=== PATIENT | male | born 1945 | race Caucasian/White ===

== ENCOUNTER 2019-04-06 13:05 | Emergency (ER) | payer MEDICARE, SELFPAY ==
--- NOTE | ~2019-04-06 | XR_ITS ---
EXAMINATION: XR chest 2V 04/06/2019 13:26 INDICATION: Right posterior chest pain PROCEDURE: 2 view chest COMPARISON: No prior studies for comparison. FINDINGS: The lungs are clear. The cardiomediastinal silhouette is within normal limits. There are no pleural effusions. There is no pneumothorax suspected. IMPRESSION: 1: NO ACUTE CARDIOPULMONARY DISEASE. Reviewed, dictated and finalized at location A. SHIP CLERK
--- NOTE | 2019-04-06 13:12 | ED.GENADULT ---
HPI - General Adult General Chief complaint: Back Pain/Injury Stated complaint: rib pain Time Seen by Provider: 04/06/19 13:12 Source: patient Mode of arrival: ambulatory Limitations: no limitations History of Present Illness HPI narrative: A 73 y/o male, who is a nonsmoker/occasional drinker, presents to with c/o right rib pain below the scapula. Pt states that he slipped on ice 2 days ago and fell onto the running boards of his car. Pt felt fine at first but his pain worsened after he turned in bed last night and felt something. His pain is worse when coughing, no fever Onset (ago): day(s) (2) Location: right (ribs) Exacerbating factors: other (coughing) Related Data Home Medications Medication Instructions Recorded Confirmed cannabidiol 100 mg/mL oral solution 100 mg PO DAILY 01/21/19 04/06/19 omega 0-zaa-otf-fish oil 1,000 mg 1 cap PO DAILY 01/21/19 04/06/19 (120 mg-180 mg) capsule Allergies Allergy/AdvReac Type Severity Reaction Status Date / Time No Known Allergies Allergy Verified 04/06/19 13:06 Review of Systems Review of Systems: Narrative: Pt advised to see PMD in week for possible HTN General/Constitutional: Denies: weight loss,fever Eyes: Denies: Redness,discharge Ears/Nose/Throat: Denies: Epistaxis,ear discharge Respiratory: Denies: Hemoptysis Gastrointestinal: Denies: Vomiting, Bleeding-rectal Skin: Reports: swelling and redness to left thumb and left great toe; Denies: drainage Neurologic: Denies: Focal Weakness,Sz Hematologic: Denies: Petechiae/Purpura Psychiatric: Denies: Suicidal ideation [facility] Past Medical History Medical History (Updated 04/06/19 @ 13:49 by Esteban Peters MD) BPH (benign prostatic hyperplasia) Erectile dysfunction Family History Family History (Updated 08/29/17 @ 13:33 by DOCTOR UNKNOWN) Mother Family history of cardiovascular disease Cerebrovascular accident Other Hypertension Social History Social History Smoking status: Never smoker Alcohol intake: current Comments At time of signature, agree with nursing past medical, surgical, social and family history. There is no relevant family history pertinent to the presenting complaint Exam Narrative: Exam Narrative: General Appearance: Well appearing, No distress EYE: PERRLA, Conjunctiva clear Ears: External ear normal Nose: Normal nose Mouth/Throat: Normal appearing, Normal lips Neck: Supple Respiratory: Airway patent, No respiratory distress, CTA ; tender R chest wall below scapula Cardiovascular: RRR Abdomen: Soft, Non-tender, Musculoskeletal: Full ROM Skin: Warm, Dry Neurological: A&O x3, CN II-X intact Psychiatric: Normal mood, Normal affect Course Vital Signs Vital signs: Vital Signs Temperature 98.3 F 04/06/19 13:17 Pulse Rate 66 04/06/19 13:17 Respiratory Rate 16 04/06/19 13:17 Blood Pressure 139/86 04/06/19 13:17 Pulse Oximetry 100 04/06/19 13:17 Temperature 98.3 F 04/06/19 13:17 Pulse Rate 66 04/06/19 13:17 Respiratory Rate 16 04/06/19 13:17 Blood Pressure 139/86 04/06/19 13:17 Pulse Oximetry 100 04/06/19 13:17 Medical Decision Making Vital Signs Vital Signs: Vital Signs Temperature 98.3 F 04/06/19 13:17 Pulse Rate 66 04/06/19 13:17 Respiratory Rate 16 04/06/19 13:17 Blood Pressure 139/86 04/06/19 13:17 Pulse Oximetry 100 04/06/19 13:17 Temperature 98.3 F 04/06/19 13:17 Pulse Rate 66 04/06/19 13:17 Respiratory Rate 16 04/06/19 13:17 Blood Pressure 139/86 04/06/19 13:17 Pulse Oximetry 100 04/06/19 13:17 Discharge Plan Discharge Clinical Impression: Chest wall pain Patient Disposition: Home, Self-Care Condition: Stable Instructions: Rib Fracture (ED) Prescriptions: New acetaminophen-codeine [Tylenol-Codeine #3] 300-30 mg tablet 1 tablet PO HS PRN (Reason: pain) Qty: 10 RF: 0 tramadol 50 mg tablet 50 mg PO TID PRN ([place]
[2019-04-06 13:17] VITALS: BP 139/86; PULSE 66; RESP 16; TEMP 36.8; O2SAT 100
== END 2019-04-06 13:56 | disposition home or self-care (01) ==
PROVIDERS: Emergency Provider Emergency Medicine; PCP Internal Medicine
DX: R07.89 Other chest pain (principal); N40.0 Benign prostatic hyperplasia without lower urinary tract symptoms
CPT/HCPCS: 71046; 99213; G0463

== ENCOUNTER 2019-11-26 07:58 | Outpatient (CLI) | payer MEDICARE, SELFPAY ==
[2019-11-26 08:44] LABS: Basophils Absolute Auto 0.1 K/mm3 (0.0-0.1); Basophils Percent Auto 1.3 % (0.2-1.2); Eosinophils Absolute Auto 0.1 K/mm3 (0-0.3); Eosinophils Percent Auto 2.2 % (0-4.4); Hematocrit 43.6 % (42.0-52.0); Hemoglobin 14.8 g/dL (14.0-18.0); Immature Granulocyte Absolute 0.01 K/mm3 (0.00-0.031); Immature Granulocyte Percent A 0.2 % (0-0.5); Lymphocytes Absolute Auto 1.24 K/mm3 (0.9-3.2); Mean Corpuscular HGB Conc 33.9 g/dl (32-36); Mean Corpuscular Volume 91.2 fl (80-100); Mean Platelet Volume 10.7 fl (7.4-10.4); Monocytes Absolute Auto 0.5 K/mm3 (0.1-0.6); Monocytes Percent Auto 11.3 % (2.6-8.5); Neutrophils Absolute Auto 2.7 K/mm3 (1.3-6.7); Platelet Count Result 171 k/mm3 (150-375); Red Blood Count 4.78 M/mm3 (4.6-6.20); Red Cell Distribution Width 12.9 % (11.5-14.5); White Blood Count 4.6 K/mm3 (4.5-10.0)
[2019-11-26 08:58] LABS: Alanine Aminotransferase 24 U/L (4-50); Albumin Level 4.1 g/dL (3.5-5.1); Alkaline Phosphatase 40 U/L (38-126); Anion Gap 5 mmol/L (8-16); Aspartate Amino Transferase 35 U/L (17-59); Bilirubin,Total 0.8 mg/dL (0.2-1.3); Blood Urea Nitrogen 13 mg/dL (9-20); Calcium 9.3 mg/dL (8.4-10.2); Carbon Dioxide 32 mmol/L (22-30); Chloride 101 mmol/L (98-107); Cholesterol 205 mg/dL (0-200); Estimated Glomerular Filt Rate > 60; Glucose 103 mg/dL (75-110); HDL Direct 78 mg/dL; Potassium 4.5 mmol/L (3.4-5.0); Sodium 138 mmol/L (137-145); Triglycerides 87 mg/dL (<150)
[2019-11-26 09:10] LABS: LDL Cholesterol Direct 95 mg/dL
[2019-11-26 09:29] LABS: Prostate Specific Antigen 4.7 ng/mL (< OR = 4.0)
== END 2019-11-26 07:59 | disposition home or self-care (01) ==
PROVIDERS: PCP Internal Medicine; Visit Provider Clinical Nurse Specialist
DX: R97.20 Elevated prostate specific antigen [PSA] (principal); Z13.228 Encounter for screening for other metabolic disorders; Z13.220 Encounter for screening for lipoid disorders
CPT/HCPCS: 36415; 80053; 80061; 84153; 85025

== ENCOUNTER 2020-02-13 14:19 | Outpatient (CLI) | payer MEDICARE, SELFPAY ==
[2020-03-05 14:35] LABS: SARS-CoV-2 IgG Positive
== END 2020-02-13 14:20 | disposition home or self-care (01) ==
LOC: ANHLAB 14:23
PROVIDERS: PCP Internal Medicine; Visit Provider Internal Medicine
DX: Z01.84 Encounter for antibody response examination (principal)
CPT/HCPCS: 36415; 86769

== ENCOUNTER 2020-04-28 09:59 | Outpatient (CLI) | payer MEDICARE, SELFPAY ==
[2020-05-03 08:27] LABS: Gliadin AB, IgG 5 Units (<20); Reticulin IgA Negative (Negative); TTG IGA AB 1 U/mL (<4)
== END 2020-04-28 10:00 | disposition home or self-care (01) ==
PROVIDERS: PCP Internal Medicine; Visit Provider Internal Medicine
DX: K52.9 Noninfective gastroenteritis and colitis, unspecified (principal)
CPT/HCPCS: 36415; 83516; 86255

== ENCOUNTER 2020-05-04 10:55 | Outpatient (CLI) | payer MEDICARE, SELFPAY | END 2020-05-04 10:56 | disposition home or self-care (01) | PROVIDERS: PCP Internal Medicine; Visit Provider Internal Medicine | DX: K52.9 Noninfective gastroenteritis and colitis, unspecified (principal) | CPT/HCPCS: 87045; 87046; 87177; 87209; 87269; 87324; 87427 ==

== ENCOUNTER → 2020-06-30 04:38 | Outpatient (CLI) | payer MEDICARE, SELFPAY ==
[2020-06-30 20:07] LABS: SARS-CoV-2 RNA PCR Negative
== END ==
PROVIDERS: PCP Internal Medicine; Visit Provider Internal Medicine Gastroenterology
DX: Z01.812 Encounter for preprocedural laboratory examination (principal); Z20.822 Contact with and (suspected) exposure to COVID-19
CPT/HCPCS: C9803; U0003; U0005

== ENCOUNTER 2020-07-03 03:46 | Day surgery (SDC) | payer MEDICARE, SELFPAY ==
[2020-06-25 13:51] VITALS: BMI 27.9
[2020-07-03 09:30] VITALS: BP 128/87; PULSE 80; RESP 18; TEMP 36.6; O2SAT 99
[2020-07-03] MEDS: LACTATED RINGERS 1,000 ML 150 ML IV CONT (09:32)
--- NOTE | 2020-07-03 10:17 | WPDANESEPPF ---
Anes - Initial Pre Proc Eval Procedure: Operation Date: 07/03/20 10:30 Proposed Procedures p Colonoscopy - Osbaldo Yu MD Date/Time: 07/03/20 10:17 Surgeon: Osbaldo Yu MD Pre Op Diagnosis: colitis Patient Data Age: 74 Gender: M Height: 5 ft 11 in Weight: 88.5 kg Last Vital Signs Temp 97.8 F 07/03/20 09:30 Pulse 80 07/03/20 09:30 Resp 18 07/03/20 09:30 BP 128/87 07/03/20 09:30 Pulse Ox 99 07/03/20 09:30 Allergies Allergy/AdvReac Type Severity Reaction Status Date / Time No Known Allergies Allergy Verified 07/03/20 09:28 Home Medications Medication Instructions Recorded Confirmed Type cannabidiol 100 mg/mL oral solution 100 mg PO DAILY 01/21/19 07/03/20 History omega 9-zxp-ynt-fish oil 1,000 mg 2 cap PO DAILY 01/21/19 07/03/20 History (120 mg-180 mg) capsule turmeric 400 mg capsule 400 mg PO DAILY cap 11/29/19 07/03/20 History tadalafil 5 mg tablet 5 mg PO DAILY #90 tablet 02/05/20 07/03/20 Rx Patient hx anesthesia problems: none Family hx anesthesia problems: none PMFSH Past Medical History Medical History (Updated 04/23/20 @ 08:29 by Ramon Hamm DO) BPH (benign prostatic hyperplasia) Erectile dysfunction Family History Family History (Updated 11/29/19 @ 09:14 by Loren Kirkland, [facility]) Mother Family history of cardiovascular disease Cerebrovascular accident Congestive heart failure Other Hypertension Social History Social History Smoking status: Never smoker Alcohol intake: current Drinks per week: 2 Living arrangements: with family Spiritual care concerns: No Anes - Eval Final PreProcedure Day of Procedure 07/03/20 10:17 Patient weight: normal Heart: regular rate and rhythm Lungs: clear to auscultation Airway: Mallampati scale class II Neurological: alert and oriented Last oral intake: >/= 8 hours ASA classification: II Emergent: no Anesthetic plan: proceed Anesthesia type and monitoring: general GIVS and standard monitoring Informed Consent: The patient's anesthetic plan and its attendant risks and benefits were discussed with the patient/family/POA. Questions were solicited and answers provided to the satisfaction of the patient/family/POA.
[2020-07-03 11:00] VITALS: BP 110/69; PULSE 63; RESP 16; O2SAT 98
[2020-07-03 11:10] VITALS: BP 132/77; PULSE 58; RESP 18; O2SAT 99
[2020-07-03 11:20] VITALS: BP 139/74; PULSE 55; RESP 20; O2SAT 98
--- NOTE | 2020-07-08 13:11 | PM.HPGS ---
History of Present Illness History of Present Illness Consent: Risks, benefits, and alternatives have been discussed and questions answered. Patient agrees to proceed with procedure. Chief complaint: colitis Narrative: the patient is a 74-year-old male who is undergoing colonoscopy because of chronic diarrhea Review of Systems Review of Systems: All systems reviewed & are unremarkable except as noted in HPI and below PMFSH Past Medical History Medical History BPH (benign prostatic hyperplasia) Erectile dysfunction Family History Family History Mother Family history of cardiovascular disease Cerebrovascular accident Congestive heart failure Other Hypertension Social History Social History Smoking status: Never smoker Alcohol intake: current Drinks per week: 2 Living arrangements: with family Spiritual care concerns: No Meds Home Medications and Allergies Home Medications Medication Instructions Recorded Confirmed Type cannabidiol 100 mg/mL oral solution 100 mg PO DAILY 01/21/19 07/03/20 History omega 4-cjb-rkr-fish oil 1,000 mg 2 cap PO DAILY 01/21/19 07/03/20 History (120 mg-180 mg) capsule turmeric 400 mg capsule 400 mg PO DAILY cap 11/29/19 07/03/20 History tadalafil 5 mg tablet 5 mg PO DAILY #90 tablet 02/05/20 07/03/20 Rx Allergies Allergy/AdvReac Type Severity Reaction Status Date / Time No Known Allergies Allergy Verified 07/03/20 09:28 Exam Resp: Auscultation: clear to auscultation bilaterally Cardio: Rate: regular rate Rhythm: regular rhythm GI: GI Palp: Yes Soft to palpation and No Tenderness to palpation present (GI) Assessment and Plan Assessment and plan (1) Chronic diarrhea: Code(s): K52.9 - Noninfective gastroenteritis and colitis, unspecified Status: Acute Assessment and Plan: Colonoscopy with possible biopsy or polypectomy or cautery or injection of substances.
== END 2020-07-03 11:50 | disposition home or self-care (01) ==
PROVIDERS: PCP Internal Medicine; Visit Provider Internal Medicine Gastroenterology
PROC: 0DJD8ZZ Inspection of Lower Intestinal Tract, Via Natural or Artificial Opening Endoscopic (ICD-10-PCS; CPT 45378; principal; 2020-07-03 10:30)
DX: R19.7 Diarrhea, unspecified (principal); K62.1 Rectal polyp; K63.89 Other specified diseases of intestine; N40.0 Benign prostatic hyperplasia without lower urinary tract symptoms
CPT/HCPCS: 45380; 88305; J2704; J7120

== ENCOUNTER 2020-12-23 08:05 | Emergency (ER) | payer MEDICARE, SELFPAY ==
--- NOTE | ~2020-12-23 | XR_ITS ---
EXAMINATION: XR chest 2V DATE: 12/23/2020 09:10 INDICATION: Left chest pain. TECHNIQUE: Frontal and lateral views of the chest were obtained. COMPARISON: Chest 2 views 04/06/2019, CT abdomen and pelvis 01/24/2017 FINDINGS: There is mild atelectasis in lingula. No pleural effusion or pneumothorax. The heart size i s normal. There is mild chronic anterior wedging of multiple vertebral bodies. IMPRESSION: 1. Mild atelectasis in lingula. Reviewed, dictated and finalized at location A. ON BRUSH MAKER
--- NOTE | ~2020-12-23 | CT_ITS ---
EXAMINATION: CTA chest PE protocol DATE: 12/23/2020 10:10 RISK ANALYST INDICATION: Elevated d-dimer. Chest pain. Dyspnea. TECHNIQUE: Computed tomographic angiography (CTA) of the chest was performed with 100 mL Omnipaque-35 0 intravenous contrast. The dose-length product was 406.71 mGy-cm. Maximum intensity projection 3D-re constructions of the aorta and other arteries were constructed by the technologist on a separate work station. Automated exposure control and iterative reconstruction technique were employed. COMPARISON: Chest dated 12/23/2020 FINDINGS: Cardiomegaly. No thoracic lymphadenopathy. Study is technically adequate without evidence f or pulmonary embolism. No significant pleural or pericardial effusion. There is mild thickening of th e esophagus and stomach. No evidence for aortic aneurysm or dissection. No pneumothorax. Bilateral lo wer lobe atelectasis. No endobronchial lesions. There are mild mid thoracic wedge compression deformi ties with accentuated kyphosis. Moderate multilevel thoracic spondylosis. IMPRESSION: 1. No evidence for pulmonary embolism. 2: Bilateral lower lobe atelectasis. 3: Mild thickening of the esophagus and stomach, most likely inflammatory. Reviewed, dictated and finalized at location A. ANALYST
--- NOTE | 2020-12-23 08:26 | ECG_ITS ---
Measurements Intervals [place] Rate: 63 P: 25 MN: 147 QRS: -6 QRSD: 110 T: -4 QT: 425 QTc: 436 Interpretive Statements SINUS RHYTHM INTRAVENTRICULAR CONDUCTION DELAY DELAYED PRECORDIAL R/S TRANSITION INFERIOR INFARCT, AGE INDETERMINATE BASELINE ARTIFACT- I, III, AVL ABNORMAL ECG Electronically Signed On 12-23-2020 8:30:32 FAIRING WORKER by Wm Pleitez D.O.
[2020-12-23 08:30] VITALS: BP 127/89; PULSE 66; RESP 13; O2SAT 97
[2020-12-23 09:11] VITALS: PULSE 66
[2020-12-23 09:13] LABS: Basophils Percent Auto 0.8 % (0.2-1.2); Eosinophils Absolute Auto 0.1 K/mm3 (0-0.3); Eosinophils Percent Auto 1.2 % (0-4.4); Hemoglobin 14.4 g/dL (14.0-18.0); Immature Granulocyte Absolute 0.01 K/mm3 (0.00-0.031); Immature Granulocyte Percent A 0.2 % (0-0.5); Lymphocytes Absolute Auto 1.09 K/mm3 (0.9-3.2); Mean Corpuscular HGB Conc 33.5 g/dl (32-36); Mean Corpuscular Hemoglobin 30.7 pg (26-34); Mean Corpuscular Volume 91.7 fl (80-100); Mean Platelet Volume 10.8 fl (7.4-10.4); Monocytes Absolute Auto 0.5 K/mm3 (0.1-0.6); Monocytes Percent Auto 9.9 % (2.6-8.5); Neutrophils Absolute Auto 3.3 K/mm3 (1.3-6.7); Neutrophils Percent Auto 65.9 % (45.5-73.1); Platelet Count Result 149 k/mm3 (150-375); Red Blood Count 4.69 M/mm3 (4.6-6.20); Red Cell Distribution Width 13.7 % (11.5-14.5)
[2020-12-23 09:22] LABS: Alanine Aminotransferase 35 U/L (4-50); Albumin Level 4.1 g/dL (3.5-5.1); Alkaline Phosphatase 41 U/L (38-126); Anion Gap 7 mmol/L (8-16); Aspartate Amino Transferase 39 U/L (17-59); Bilirubin,Total 0.9 mg/dL (0.2-1.3); Blood Urea Nitrogen 19 mg/dL (9-20); Calcium 9.1 mg/dL (8.4-10.2); Carbon Dioxide 26 mmol/L (22-30); Chloride 104 mmol/L (98-107); Estimated CRCL calculation 61 ml/min; Estimated Glomerular Filt Rate > 60; Glucose 99 mg/dL (65-110); Lipase 127 U/L (23-300); Potassium 4.4 mmol/L (3.4-5.0); Sodium 137 mmol/L (137-145)
[2020-12-23 09:23] LABS: D Dimer 0.49 ug/mL (<0.48)
[2020-12-23 09:34] LABS: Troponin I < 0.012 ng/mL (0.000-0.034)
--- NOTE | 2020-12-23 10:18 | ED.CHESTPAIN ---
HPI - Chest Pain General Chief Complaint: Chest Pain Stated Complaint: CP, SOB Time Seen by Provider: 12/23/20 08:28 Source: patient History of Present Illness HPI narrative: Patient ports left-sided chest pain since approximately 3 AM this morning. Pain is sharp, constant and has been gradually improving since 3 AM. Worse with deep inspiration, no radiation. Reports shortness of breath described as pain deep inspiration. Denies any nausea vomiting cough congestion or fevers. Denies any diarrhea or constipation denies recent realizations surgery or prior history of blood clots. Denies significant family history of cardiac disease. Related Data Home Medications Medication Instructions Recorded Confirmed cannabidiol 100 mg/mL oral solution 100 mg PO DAILY 01/21/19 07/03/20 omega 1-abv-epd-fish oil 1,000 mg 2 cap PO DAILY 01/21/19 07/03/20 (120 mg-180 mg) capsule turmeric 400 mg capsule 400 mg PO DAILY cap 11/29/19 07/03/20 Allergies Allergy/AdvReac Type Severity Reaction Status Date / Time No Known Allergies Allergy Verified 07/03/20 09:28 Review of Systems Review of Systems: CONSTITUTIONAL: Denies fever, chills, or sweats. EYES: Denies visual changes, redness, or discharge. ENT: Denies rhinorrhea, congestion, sore throat, or otalgia. CARDIOVASCULAR: Denies palpitations, or edema. RESPIRATORY: Denies cough GASTROINTESTINAL: Denies abdominal pain, nausea, vomiting, or diarrhea. GENITOURINARY: Denies dysuria or hematuria. SKIN: Denies rash or itching. MUSCULOSKELETAL: Denies back pain, joint pain, or myalgia. NEUROLOGIC: Denies headache, numbness, dizziness, or weakness. PSYCHIATRIC: Denies anxiety or depression. All systems reviewed & are unremarkable except as noted in HPI and below PMFSH Past Medical History Medical History BPH (benign prostatic hyperplasia) Erectile dysfunction Family History Family History Mother Family history of cardiovascular disease Cerebrovascular accident Congestive heart failure Other Hypertension Social History Social History Smoking status: Never smoker Alcohol intake: current Drinks per week: 2 Spiritual care concerns: No Exam Narrative: GENERAL: Well-appearing, well-nourished, and in no acute distress. HEAD: Normocephalic, atraumatic. EYES: PERRLA and EOMI. ENT: Nares clear, no rhinorrhea or epistaxis. Mucous membranes moist. NECK: Supple. No masses. No JVD CHEST: Clear to auscultation. No respiratory distress. No wheezes rales or rhonchi HEART: Regular rate and rhythm. No murmur heard. Normal peripheral pulses. ABDOMEN: Soft, nontender, nondistended, normal active bowel sounds. EXTREMITIES: Normal range of motion. No edema. SKIN: Warm, dry, no rash. NEURO: No focal deficits. Alert and oriented x3. PSYCH: Normal mood and affect. Course Reevaluation(s) Reevaluation #1: Patient is resting comfortably results and plan reviewed with patient. Patient comfortable outpatient plan. Date: 12/23/20 Time: 10:20 Vital Signs Vital signs: Vital Signs Pulse Rate 66 12/23/20 08:30 Respiratory Rate 13 12/23/20 08:30 Blood Pressure 127/89 12/23/20 08:30 Pulse Oximetry 97 12/23/20 08:30 Pulse Rate 65 12/23/20 10:58 Respiratory Rate 14 12/23/20 10:58 Blood Pressure 120/70 12/23/20 10:58 Pulse Oximetry 100 12/23/20 10:58 MDM - Chest Pain MDM Narrative Medical decision making narrative: H&P as above, vss, pt looks clinically well, exam reassuring, labs slight elevation in dimer likely age-related, img clinically unremarkable, additional labs/img considered, symptomatic relief available as needed, on reevaluation pt continues to looks clinically well. Suspect chest wall pain, dns PE, dissection, ACS, pneumonia, pneumothorax. plan to tx/monitor as op w/ pcm f/u findings/plan
[2020-12-23 10:58] VITALS: BP 120/70; PULSE 65; RESP 14; O2SAT 100
== END 2020-12-23 10:59 | disposition home or self-care (01) ==
PROVIDERS: Emergency Provider Emergency Medicine; PCP Internal Medicine
DX: R07.9 Chest pain, unspecified (principal)
CPT/HCPCS: 36415; 71046; 71275; 80053; 83690; 84484; 85025; 85380; 93005; 99284; Q9967

== ENCOUNTER 2024-04-18 08:50 | Outpatient (CLI) | payer MEDICARE, SELFPAY ==
--- OUTSIDE RECORDS SUMMARY | 2024-04-18 09:24 | XMS_ITS | Clinical Summary ---
Author Organization [facility] Address [address] [place] [address] Care Team Providers Care Band Scroll Saw Operator Name Role Phone Ramon Hamm DO Primary Care Provider [phone] Source Comments [facility],non-[facility] Affiliates and Associated Physician Practices is amultiple site organization consisting of ambulatory clinics and hospital sitesin [place], [place], [place] and [place]. This disclosure is being madepursuant to the Care Everywhere program and may not contain all information available regarding this patient. Last updated 17.[facility] Encounters Date Type Department Care Team Description 04/16/2024 6:48 AM FOOD SAFETY MANAGER - 04/16/2024 11:59 PM FOOD SAFETY MANAGER Hospital Encounter [facility] Imaging Services - CT Scan [address] [place] [id number] Saqib Roberts, DO Orthopedics Discharge Disposition: Home or Self Care 03/26/2024 Travel from Last 3 Months Immunizations Name Administration Dates Next Due INFLUENZA VACCINE, QUADR. (F LUZONE; FLULAVAL; FLUARIX; AFLURIA QUADRIVALENT; 6MO+), 0.5 ML (IIV4) 02/17/2018 Social History Tobacco Use Types Packs/Day Years Used Date Smoking Tobacco: Never Assessed Sex and Gender Information Value Date Recorded Sex Assigned at Not on file Gender Identity Not on file Sexual Orientation Not on file Plan of Treatment Health Maintenance Due Date Last Done Comments MEDICARE AWV 12 MONTHS 1945 HEPATITIS C SCREENING 11/23/1964 DTAP/TDAP/TD VACCINES (1 - Tdap) 1965 PNEUMOCOCCAL VACCINE 50+ (1 of 1 - PCV) 1996 ZOSTER VACCINE (1 of 2) 1996 Respiratory Syncytial Virus (RSV) Vaccine Pt: or over 60 yrs (1 - 1-dose 75+ series) 2021 COVID-19 VACCINE (2023-2 5 season) 2023 INFLUENZA VACCINE (#1) 2023 02/17/2018 DEPRESSION SCREENING 02/14/2024 HEPATITIS B VACCINE Aged Out No longe r eligible based on patient's age to complete this topic HIB VACCINE Aged Out No longer eligi ble based on patient's age to complete this topic HPV VACCINE Aged Out No longer eligi ble based on patient's age to complete this topic MENINGOCOCCAL (Group B) VACCINE Aged Out No longer eligible based on patient's age to complete this topic MENINGOCOCCAL VACCINE Aged Out No malaika juliette eligible based on patient's age to complete this topic Procedures Procedure Name Priority Date/Time Associated Diagnosis Comments CT HIP LEFT WO CONTRAST Routine 04/16/2024 7:23 AM FOOD SAFETY MANAGER Primary osteoarthritis of left hip from Last 3 Months Results * CT Hip Left Wo Contrast (04/16/2024 7:23 AM FOOD SAFETY MANAGER) Anatomical Region Laterality Modality Lower Extremity Computed Tomogra phy 04/16/2024 7:59 AM FOOD SAFETY MANAGER Impressions 04/16/2024 8:11 AM FOOD SAFETY MANAGER IMPRESSION: 1. Bilateral hip degenerative changes. 2. Right knee prosthesis. 3. Degenerative changes left knee and lower lumbar spine. Edited by Leela Fierro on 04/16/2024 8:07 AM > Interpreting Provider: Esteban Henry MD on 04/16/2024 8:11 AM Narrative 04/16/2024 8:11 AM FOOD SAFETY MANAGER PROCEDURE: CT HIP LEFT WO CONTRAST DATE/TIME OF EXAM: 04/16/2024 7:23 AM INDICATION: M16.12: Unilateral primary osteoarthritis, left hip. Additional History: COMPARISON: None. TECHNIQUE: Axial helical images obtained through the bilateral hips and knees noncontrast with coronal and sagittal reconstructed images. COMPARISON: None. FINDINGS: Right knee prosthesis is present. There are degenerative changes of both hips with joint space narrowing. Subchondral cystic changes are seen overlying both femoral heads and acetabula. Associated spurring is demonstrated. There is no displaced fracture or subluxation. There is bony demineralization. There are degenerative changes in the lower lumbar spine. Endplate degenerative changes are seen with intervertebral disc space narrowing of L4-5 and L5-S1. Medial femorotibial joint space narrowing is present with periarticular spurs. Procedure Note Esteban Henry MD - 04/16/2024 PROCEDURE: CT HIP LEFT WO CONTRAST DATE/TIME OF EXAM: 04/16/2024 7:23 AM INDICATION: M16.12: Unilateral primary osteoarthritis, left hip. Additional History: COMPARISON: None. TECHNIQUE: Axial helical images obtained through the bilateral hips and knees noncontrast with coronal and sagittal reconstructed images. COMPARISON: None. FINDINGS: Right knee prosthesis is present. There are degenerative changes of both hips with joint space narrowing. Subchondral cystic changes are seen overlying both femoral heads and acetabula. Associated spurring is demonstrated. There is no displaced fracture or subluxation. There isbony demineralization. There are degenerative changes in the lower lumbar spine. Endplate degenerative changes are seen with intervertebral disc space narrowingof L4-5 and L5-S1. Medial femorotibial joint space narrowing is present with periarticular spurs. IMPRESSION: 1. Bilateral hip degenerative changes. 2. Right knee prosthesis. 3. Degenerative changes left knee and lower lumbar spine. Edited by Leela Fierro on 04/16/2024 8:07 AM > Interpreting Provider: Esteban Henry MD on 04/16/2024 8:11 AM Saqib Roberts DO CT ORDERABLES from Last 3 Months Care Teams Band Scroll Saw Operator Relationship Specialty Start Date End Date Ramon Hamm DO [address] [place] [address] PCP - General Internal Medicine 04/16/24
--- OUTSIDE RECORDS SUMMARY | 2024-04-18 09:24 | XMS_ITS | Referral Summary ---
Author Organization [facility] Address [facility] [place] [address] Care Team Providers Care Metal Furniture Glazier Name Role Phone Ramon Hamm DO Primary Care Provider [phone] Allergies No known active allergies Medications aspirin 81 mg tablet Take 1 tablet (81 mg total) by mouth daily Active tadalafiL (CIALIS) 5 mg tablet Take 1 tablet (5 mg total) by mouth daily 1 Active tamsulosin (FLOMAX) 0.4 mg extended release capsule Take 1 capsule (0.4 mg total) by mouth nightly 1 Active TESTOSTERONE CYPIONATE IM Inject into the muscle as instructed once a week Active UNABLE TO FIND daily Med Name: CBD oil 5 drops under tongue. Active ciprofloxacin (CIPRO) 500 mg tablet Take 1 Cipro tablet 2 hours prior to leaving home for your procedure and use a Fleet enema. 1 tablet 1 Active testosterone enanthate, bulk, 100 % powder 0 4 Active Active Problems Problem Noted Date Diagnosed Date Hypertensive retinopathy of both eyes, grade 1 1 Assessment & Plan (11/14/2023 3:25 PM CDT): Mild crossing changes both eyes (OU) Pt ed Follow with PCP, will send letter PVD (posterior vitreous detachment), bilateral 1 03/24/2020 Assessment & Plan (11/14/2023 3:24 PM CDT): Retina flat/intact both eyes (OU) RTC with any increase fl/foaters Assessment & Plan (01/02/2023 10:49 AM CMV DRIVER): -stable and longstanding x 3-4 years OU -no untreated retinal breaks OU todady -s/s RD/RT discussed with pt today; RTC KRUNAL if any symptoms arise -otherwise RTC 1 year DFE Assessment & Plan (01/21/2021 9:37 AM CMV DRIVER): New patient here today for eval of flashes of light, both eyes (OU) X 2 years; happens at night when he moves his eyes in lateral gazes -retina flat and attached both eyes (OU) -PVD both eyes (OU) but likely long standing -pt ed s/s retinal detachment (RD); RTC krunal if noted -otherwise follow with annual exam Combined forms of age-related cataract of both e yes 01/21/2021 Assessment & Plan (11/14/2023 3:24 PM CDT): Pt is asymptomatic. Defer cataract extraction (CE) until signs/sx indicate. Recommend UV eye protection. Cont with custom reading Rx No complaints at distance, monitor Assessment & Plan (01/02/2023 10:57 AM CMV DRIVER): -not yet visually significant -ok to continue with OTC readers; currently using +1.50; may need to increase add for finer print -follow annually Assessment & Plan (01/21/2021 9:38 AM CMV DRIVER): Not yet visually significant; pt maintains optimal uncorrected distance vision; cont with OTC readers; cataract extraction (CE) not yet indicated -RTC 1 year DFE Elevated PSA 08/28/2017 Abnormal digital rectal exam 08/28/2017 Social History Tobacco Use Types Packs/Day Years Used Date Smoking Tobacco: Never Smokeless Tobacco: Never Alcohol Use Standard Drinks/Week Comments Yes 0 (1 standard drink = 0.6 oz pur e alcohol) social Personal Safety Answer Date Recorded Getting School Help Needed Not on file 04/10 Sex and Gender Information Value Date Recorded Sex Assigned at Not on file Legal Sex Male 6:53 AM CMV DRIVER Gender Identity Not on file Sexual Orientation Not on file Last Filed Vital Signs Vital Sign Reading Time Taken Comments Blood Pressure 134/85 08/28/2017 2:28 PM CDT Pulse 61 08/28/2017 2:28 PM CDT Temperature 36.1 C (97 F) 08/28/2017 2:28 PM CDT Respiratory Rate - - Oxygen Saturation - - Inhaled Oxygen Concentration - - Weight 88.5 kg (195 lb) 08/28/2017 2:28 PM CDT Height 180.3 cm (5' 11 ) 08/28/2017 2:28 PM CDT Body Mass Index 27.2 08/28/2017 2:28 PM CDT Plan of Treatment Not on file Medical Devices Implanted Type Area Video Game Technician Device Identifier Shelf Expiration Date Model / Serial / Lot Rt Total Knee Arthroplasty-07/17 Implanted:2006 (Quantity not on file) Knee Insurance [facility] MEDICARE MEDICARE AETNA Care Teams Metal Furniture Glazier Relationship Specialty Start Date End Date Ramon Hamm DO PCP - General Internal Medicine 08/23/17
--- OUTSIDE RECORDS SUMMARY | 2024-04-18 09:24 | XMS_ITS | Clinical Summary ---
Author Organization [facility] Address [facility] [place] [address] Care Team Providers Care Roofing Contractor Name Role Phone Ramon Hamm DO Primary Care Provider [phone] Allergies No known active allergies Medications aspirin [...] fl/foaters Assessment & Plan (01/02/2023 10:49 AM SUPERVISOR OF GUIDANCE AND TESTING): -stable and longstanding x 3-4 years OU -no untreated retinal breaks OU todady -s/s RD/RT discussed with pt today; RTC KRUNAL if any symptoms arise -otherwise RTC 1 year DFE Assessment & Plan (01/21/2021 9:37 AM SUPERVISOR OF GUIDANCE AND TESTING): New patient here today for eval of [...] monitor Assessment & Plan (01/02/2023 10:57 AM SUPERVISOR OF GUIDANCE AND TESTING): -not yet visually significant -ok to continue with OTC readers; currently using +1.50; may need to increase add for finer print -follow annually Assessment & Plan (01/21/2021 9:38 AM SUPERVISOR OF GUIDANCE AND TESTING): Not yet visually significant; pt maintains optimal uncorrected distance vision; cont with OTC readers; cataract extraction (CE) not yet indicated -RTC 1 year DFE Elevated PSA 08/28/2017 Abnormal digital rectal exam 08/28/2017 Surgical History Surgery Date Site/Laterality Comments KNEE SURGERY KNEE SURGERY Medical History Medical History Date Comments Elevated PSA Family History Medical History Relation Name Comments fall Father Heart disease Mother Stroke Mother Relation Name Status Comments Father Mother Social History Tobacco Use Types Packs/Day Years Used Date Smoking Tobacco: Never Smokeless Tobacco: Never Alcohol Use Standard Drinks/Week Comments Yes 0 (1 standard drink = 0.6 oz pur e alcohol) social Personal Safety Answer Date Recorded Getting School Help Needed Not on file 04/10 Sex and Gender Information Value Date Recorded Sex Assigned at Not on file Legal Sex Male 6:53 AM SUPERVISOR OF GUIDANCE AND TESTING Gender Identity Not on file Sexual Orientation Not on file Obstetrics History Last Filed Vital Signs Vital Sign Reading [...] 08/28/2017 2:28 PM CDT Plan of Treatment Health Maintenance Due Date Last Done Comments Depression Screening 1945 Fall Risk Assessment 1945 Hepatitis C Screening 1945 DTaP/Tdap/Td Vaccine (1 - Tdap) 1957 Hepatitis B Screening 1964 Zoster Vaccine (1 of 2) 1996 Well Visit 65+ 11/29/2011 Pneumococcal vaccine 65+ (2 of 2 - PCV) 01/15/2021 01/16/2020 Influenza Vaccine (#1) 2023 0, 01/21/2019, 02/17/2018, Additional history exists Medical Devices Implanted Type Area Balance Wheel Screw Hole Driller Device Identifier Shelf Expiration Date Model / Serial / Lot Rt 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
--- OUTSIDE RECORDS SUMMARY | 2024-04-18 09:24 | XMS_ITS | Encounter Summary ---
Author Organization [facility] Address [address] [facility] [facility] [place] [address] Care Team Providers Care Switchbox Assembler Name Role Phone Ramon Hamm DO Primary Care Provider [phone] Reason for Referral * Radiology Services (Routine) - Closed Specialty Diagnoses / Procedures Referred By Contac t Referred To Contact CT Scan Diagnoses Primary osteoarthritis of left hip Procedures CT [place] [address] [place] [address] [facility] [address] [place] [address] Referral ID Status Reason Start Date Expiration Date Visits Re quested Visits Authorized [id number] Closed 04/09/2024 04/09/2025 1 1 TUTOR Reason for Visit * Radiology Services (Routine) - Closed Specialty Diagnoses / Procedures Referred By Contac t Referred To Contact CT Scan Diagnoses Primary osteoarthritis of left hip Procedures CT [place] [address] [place] [address] [facility] [address] [place] [address] Referral ID Status Reason Start Date Expiration Date Visits Re quested Visits Authorized [id number] Closed 04/09/2024 04/09/2025 1 1 Encounter Details Date Type Department Care Team (Late st Contact Info) Description 04/16/2024 6:48 AM GMAT TUTOR - 04/16/2024 11:59 PM GMAT TUTOR Hospital Encounter [facility] Health Imaging Services - CT Scan [address] [place] [address] Saqib Roberts, [address] [place] [address] Orthopedics Discharge Disposition: Home or Self Care Social History Tobacco Use Types Packs/Day Years Used Date Smoking Tobacco: Never Assessed Sex and Gender Information Value Date Recorded Sex Assigned at Not on file Gender Identity Not on file Sexual Orientation Not on file documented as of this encounter Plan of Treatment Not on file documented as of this encounter Procedures Procedure Name Priority Date/Time Associated Diagnosis Comments CT HIP LEFT WO CONTRAST Routine 04/16/2024 7:23 AM GMAT TUTOR Primary osteoarthritis of left hip documented in this encounter Results * CT Hip Left Wo Contrast (04/16/2024 7:23 AM GMAT TUTOR) Anatomical Region Laterality Modality Lower Extremity Computed Tomogra phy 04/16/2024 7:59 AM GMAT TUTOR Impressions 04/16/2024 8:11 AM GMAT TUTOR IMPRESSION: 1. Bilateral hip degenerative changes. 2. Right knee prosthesis. 3. Degenerative changes left knee and lower lumbar spine. Edited by Leela Fierro on 04/16/2024 8:07 AM > Interpreting Provider: Esteban Henry MD on 04/16/2024 8:11 AM Narrative 04/16/2024 8:11 AM GMAT TUTOR PROCEDURE: CT HIP LEFT WO CONTRAST DATE/TIME [...] 8:11 AM Saqib Roberts DO CT ORDERABLES documented in this encounter Visit Diagnoses Diagnosis Primary osteoarthritis of left hip Primary localized osteoarthrosis, pelvic region and thigh documented in this encounter Care Teams Switchbox Assembler Relationship Specialty Start Date End Date Ramon Hamm DO [address] [place] [address] PCP - General Internal Medicine 04/16/24 documented as of this encounter
--- OUTSIDE RECORDS SUMMARY | 2024-04-18 09:24 | XMS_ITS | Referral Summary ---
Author Organization [facility] Address [address] [place] [address] Care Team Providers Care Power Machine Operator Name Role Phone Ramon Hamm DO Primary Care Provider [phone] Source Comments [facility],non-[facility] health Affiliates and Associated Physician Practices is amultiple site organization consisting of ambulatory clinics and hospital sitesin [place], [place], [place] and [place]. This disclosure is being madepursuant to the Care Everywhere program and may not contain all information available regarding this patient. Last updated 17.[facility] Encounters Date Type Department Care Team Description 04/16/2024 6:48 AM RADIOACTIVE WASTE DISPOSAL DISPATCHER - 04/16/2024 11:59 PM RADIOACTIVE WASTE DISPOSAL DISPATCHER Hospital Encounter [facility] Imaging Services - CT Scan [address] [place] [address] Saqib Roberts, DO Orthopedics Discharge Disposition: Home [...] Orientation Not on file Plan of Treatment Not on file Procedures Procedure Name Priority Date/Time Associated Diagnosis Comments CT HIP LEFT WO CONTRAST Routine 04/16/2024 7:23 AM RADIOACTIVE WASTE DISPOSAL DISPATCHER Primary osteoarthritis of left hip from Last 3 Months Results * CT Hip Left Wo Contrast (04/16/2024 7:23 AM RADIOACTIVE WASTE DISPOSAL DISPATCHER) Anatomical Region Laterality Modality Lower Extremity Computed Tomogra phy 04/16/2024 7:59 AM RADIOACTIVE WASTE DISPOSAL DISPATCHER Impressions 04/16/2024 8:11 AM RADIOACTIVE WASTE DISPOSAL DISPATCHER IMPRESSION: 1. Bilateral hip degenerative changes. 2. Right knee prosthesis. 3. Degenerative changes left knee and lower lumbar spine. Edited by Leela Fierro on 04/16/2024 8:07 AM > Interpreting Provider: Esteban Henry MD on 04/16/2024 8:11 AM Narrative 04/16/2024 8:11 AM RADIOACTIVE WASTE DISPOSAL DISPATCHER PROCEDURE: CT HIP LEFT WO CONTRAST DATE/TIME [...] ORDERABLES from Last 3 Months Care Teams Power Machine Operator Relationship Specialty Start Date End Date Ramon Hamm DO [address] [place] [address] PCP - General Internal Medicine 04/16/24
--- OUTSIDE RECORDS SUMMARY | 2024-04-18 09:24 | XMS_ITS | Encounter Summary ---
Author Organization [facility] Address [address] [facility] [place] [address] Care Team Providers Care Functional Tester Name Role Phone Ramon Hamm DO Primary Care Provider [phone] Encounter Details Date Type Department Care Team (Late st Contact Info) Description 08/14/2018 Lab Requisition [facility] Lab [address] [place] [address] Jus Mcgraw MD [address] [place] [address] Social History Tobacco Use Types Packs/Day Years Used Date Smoking Tobacco: Never Assessed Sex and Gender Information Value Date Recorded Sex Assigned at Not on file Gender Identity Not on file Sexual Orientation Not on file documented as of this encounter Plan of Treatment Not on file documented as of this encounter Procedures Procedure Name Priority Date/Time Associated Diagnosis Comments DERMATOPATHOLOGY Routine 08/14/2018 12:0 0 AM CDT documented in this encounter Results * DERMATOPATHOLOGY (08/14/2018 12:00 AM CDT) Case Report Dermatopathology Report Case: [id number] Authorizing Provider: Jus Mcgraw MD Collected: 08/14/2018 12:00 AM Pathologist: Maggi Sal MD Received: 08/14/2018 12:13 PM Specimen: Skin, left flank 9 1:06 PM CDT DERMATOPATHOLOGY LABORATORY Final Diagnosis Specimen A. SKIN, left flank: SEBORRHEIC KERATOSIS, IRRITATED (L82.0) 1:06 PM CDT DERMATOPATHOLOGY LABORATORY Clinical History SK vs nevus R/O atypia. 1:06 PM CDT DERMATOPATHOLOGY LABORATORY Gross Description Specimen A: Received is one formalin filled container labeled with the patient's name and designated left flank. The specimen consists of a shave biopsy measuring [id number]. Jar 0. 1:06 PM CDT DERMATOPATHOLOGY LABORATORY Microscopic Description Specimen A. SKIN, left flank: There is acanthosis consisting of fairly uniform squamous cells with eosinophilic cytoplasm and squamous eddies. 1:06 PM CDT DERMATOPATHOLOGY LABORATORY Disclaimer An external and internal positive and negative controls are appropriate for the histochemical, immunohistochemical and immunofluorescence stain(s) in this case (if any), except where stated explicitly. The performance characteristics of the stain(s) cited in this report were developed and its performance characteristic determined by the Dermatopathology Laboratory at [facility], directed by Dr. Sheron Thomas. These tests need not be, and therefore are not, approved by the [place] Food and Drug Administration. The tests are used for clinical purposes. Billing Codes Specimen Charges Stain Charges 20443 1 1:06 PM CDT DERMATOPATHOLOGY LABORATORY Embedded Images 1:06 PM CDT DERMATOPATHOLOGY LABORATORY Pathology/Cytolog y TISSUE SPECIMEN FROM SKIN / Unknown 08/14/2018 08/14/2018 12:13 PM CDT Jus Mcgraw MD LAB - PATHOLOGY/CYTO LOGY ORDERABLES DERMATOPATHOLOGY LABORATORY [facility] - Department of Dermatology [facility] [facility], [address]th [place] [address], [facility] [phone] documented in this encounter Visit Diagnoses Not on filedocumented in this encounter Care Teams Functional Tester Relationship Specialty Start Date End Date Ramon Hamm DO [address] [place] [address] PCP - General Internal Medicine 04/16/24 documented as of this encounter
--- OUTSIDE RECORDS SUMMARY | 2024-04-18 09:24 | XMS_ITS | Patient Health Summary ---
Author Organization [facility] Address [address] [place] [address] Care Team Providers Care Theatrical Rigger Name Role Phone Ramon Hamm DO Primary Care Provider [phone] Note from [facility],non-owned Affiliates and Associated Physician Practices is amultiple site organization consisting of ambulatory clinics and hospital sitesin [place], [place], [place] and [place]. This disclosure is being madepursuant to the Care Everywhere program and may not contain all information available regarding this patient. Last updated 17.[facility] Immunizations * INFLUENZA VACCINE, QUADR. (FLUZONE; FLULAVAL; FLUARIX; AFLURIA QUADRIVALENT; 6MO+), 0.5 ML (IIV4)(Given 02/17/2018) Social History Tobacco Use Types Packs/Day Years Used Date Smoking Tobacco: Never Assessed Sex and Gender Information Value Date Recorded Sex Assigned at Not on file Gender Identity Not on file Sexual Orientation Not on file Procedures * CT HIP LEFT WO CONTRAST(Performed 04/16/2024) Performed for Primary osteoarthritis of left hip * DERMATOPATHOLOGY(Performed 08/14/2018) Results * CT Hip Left Wo Contrast (04/16/2024 7:23 AM PICKLE MAKER) Anatomical Region Laterality Modality Lower Extremity Computed Tomogra phy 04/16/2024 7:59 AM PICKLE MAKER Impressions 04/16/2024 8:11 AM PICKLE MAKER IMPRESSION: 1. Bilateral hip degenerative changes. 2. Right knee prosthesis. 3. Degenerative changes left knee and lower lumbar spine. Edited by Leela Fierro on 04/16/2024 8:07 AM > Interpreting Provider: Esteban Henry MD on 04/16/2024 8:11 AM Narrative 04/16/2024 8:11 AM PICKLE MAKER PROCEDURE: CT HIP LEFT WO CONTRAST DATE/TIME [...] 8:11 AM Saqib Roberts DO CT ORDERABLES * DERMATOPATHOLOGY (08/14/2018 12:00 AM CDT) Case Report Dermatopathology Report Case: [id number] Authorizing Provider: Jus Mcgraw MD Collected: 08/14/2018 12:00 AM Pathologist: Maggi Sal MD Received: 08/14/2018 12:13 PM Specimen: Skin, left flank 1:06 PM CDT DERMATOPATHOLOGY LABORATORY Final Diagnosis Specimen A. SKIN, left flank: SEBORRHEIC KERATOSIS, IRRITATED (L82.0) 1:06 PM CDT DERMATOPATHOLOGY LABORATORY Clinical History SK vs nevus R/O atypia. 1:06 PM CDT DERMATOPATHOLOGY LABORATORY Gross Description Specimen A: Received is one formalin filled container labeled with the patient's name and designated left flank. The specimen consists of a shave biopsy measuring [id number]. Jar 0. 1:06 PM CDT DERMATOPATHOLOGY LABORATORY [...] characteristic determined by the Dermatopathology Laboratory at [facility], directed by Dr. Sheron Thomas. These tests need not be, and therefore are not, approved by the [place] Food and Drug Administration. The tests are used for clinical purposes. Billing Codes Specimen Charges Stain Charges 11108 1 1:06 PM CDT DERMATOPATHOLOGY LABORATORY Embedded Images 1:06 PM CDT DERMATOPATHOLOGY LABORATORY Pathology/Cytolog y TISSUE SPECIMEN FROM SKIN / Unknown 08/14/2018 08/14/2018 12:13 PM CDT Jus Mcgraw MD LAB - PATHOLOGY/CYTO LOGY ORDERABLES DERMATOPATHOLOGY LABORATORY [facility] - Department of Dermatology [address] [facility], [address]th [place] [address], [facility] [phone] Care Teams Theatrical Rigger Relationship Specialty Start Date End Date Ramon Hamm DO [address] [place] [address] PCP - General Internal Medicine 04/16/24
[2024-04-18 12:39] LABS: Basophils Percent Auto 0.9 % (0.2-1.2); Eosinophils Absolute Auto 0.1 K/mm3 (0-0.3); Eosinophils Percent Auto 1.3 % (0-4.4); Hematocrit 46.6 % (42.0-52.0); Hemoglobin 15.2 g/dL (14.0-18.0); Immature Granulocyte Absolute 0.01 K/mm3 (0.00-0.031); Immature Granulocyte Percent A 0.2 % (0-0.5); Lymphocytes Absolute Auto 0.98 K/mm3 (0.9-3.2); Mean Corpuscular HGB Conc 32.6 g/dl (32-36); Mean Corpuscular Hemoglobin 30.4 pg (26-34); Mean Corpuscular Volume 93.2 fl (80-100); Mean Platelet Volume 11.2 fl (7.4-10.4); Monocytes Absolute Auto 0.5 K/mm3 (0.1-0.6); Monocytes Percent Auto 10.3 % (2.6-8.5); Neutrophils Absolute Auto 2.9 K/mm3 (1.3-6.7); Neutrophils Percent Auto 65.3 % (45.5-73.1); Platelet Count Result 177 k/mm3 (150-375); Red Cell Distribution Width 13.2 % (11.5-14.5); White Blood Count 4.5 K/mm3 (4.5-10.0)
[2024-04-18 13:51] LABS: Anion Gap 9 mmol/L (4-12); Blood Urea Nitrogen 21 mg/dL (9-20); Calcium 9.6 mg/dL (8.4-10.2); Carbon Dioxide 29 mmol/L (22-30); Chloride 103 mmol/L (98-107); Estimated Glomerular Filt Rate > 60; Glucose 91 mg/dL (65-110); Potassium 4.7 mmol/L (3.4-5.0); Sodium 141 mmol/L (137-145)
[2024-04-18 14:34] LABS: Hemoglobin A1C 5.7 % (<5.7)
== END 2024-04-18 08:51 | disposition home or self-care (01) ==
LOC: ANHGOSHLAB 08:53
PROVIDERS: PCP Internal Medicine
DX: Z01.818 Encounter for other preprocedural examination (principal); M16.12 Unilateral primary osteoarthritis, left hip
CPT/HCPCS: 36415; 80048; 83036; 85025